=== PATIENT | female | born 1945 | race Caucasian/White ===

== ENCOUNTER → 2016-05-07 11:31 | Outpatient (CLI) | payer MEDICARE, OTHER ==
[2011-11-26 11:59] VITALS: BMI 30.2
[~2016-05-07 11:31] MED LIST: ATIVAN1 MG PO; K-TAB10 MEQ PO; MAXZIDE 75/501 TAB PO; PROZAC40 MG PO
[2016-07-30 15:07] VITALS: BMI 32.7
== END | disposition home or self-care (01) ==
LOC: D.CT 05-06 11:30
DX: R41.3 Other amnesia (principal)

== ENCOUNTER 2016-07-30 14:55 | Outpatient (CLI) | payer MEDICARE, OTHER ==
[2016-07-30] MEDS ORDERED: K-TAB10 MEQ PO (15:02)
[2016-07-30] MEDS ORDERED: ATIVAN1 MG PO (15:02)
[2016-07-30] MEDS ORDERED: MAXZIDE 75/501 TAB PO (15:02)
[2016-07-30] MEDS ORDERED: PROZAC40 MG PO (15:03)
[2016-07-31 06:28] LABS: BASOPHILS 0.3 % (0-2); EOSINOPHILS 6.9 % (0-7); HEMATOCRIT 39.7 % (36.0-48.0); HEMOGLOBIN 15.2 g/dL (12-16); IMMATURE GRANULOCYTES 0.3 % (0-5); LYMPHOCYTES 37.4 % (15-50); MCH 35.3 pg (26.0-34.0); MCHC 38.3 g/dL (31.0-37.0); MCV 92.3 fL (80.0-100.0); MEAN PLATELET VOLUME 10.8 fL (7.4-10.4); MONOCYTES 10.5 % (2-11); NEUTROPHILS 44.6 % (40-80); RDW 14.5 % (11.5-14.5); WBC 7.3 10x3/uL (4.8-10.8)
[2016-07-31 06:39] LABS: ANION GAP 14.6 mmol/L (8-16); CALCIUM 8.8 mg/dL (8.5-10.1); CARBON DIOXIDE 26.2 mmol/L (21.0-32.0); CREATININE - SERUM 1.3 mg/dL (0.6-1.3); PLATELET COUNT 210 10x3/uL (130-400); POTASSIUM - SERUM 3.8 mmol/L (3.5-5.1)
== END 2016-07-31 10:02 | disposition home or self-care (01) ==
LOC: D.OPS 14:55
PROVIDERS: Family Medicine
DX: D64.9 Anemia, unspecified (principal); Z85.72 Personal history of non-Hodgkin lymphomas; J44.9 Chronic obstructive pulmonary disease, unspecified; I12.9 Hypertensive chronic kidney disease with stage 1 through stage 4 chronic kidney disease, or unspecified chronic kidney disease; N18.9 Chronic kidney disease, unspecified

== ENCOUNTER 2018-02-20 10:25 | Inpatient (IN) | payer MEDICARE, OTHER ==
[~2018-02-20] VITALS: Ht 161.3 cm; Wt 77.1 kg
--- NOTE | ~2018-02-20 | MORECARE ---
CASE MANAGEMENT DISCHARGE SUMMARY PATIENT: SHERI CA UNIT: [id number] ADM DATE: 02/20/18 AGE: 72 : 43 SEX: F ROOM/BED: D.2236 AUTHOR: ADELITADOC PHYSICIAN: REFERRING PHYSICIAN: TIFFANY RODRIGUEZ MD DATE OF SERVICE: 03/01/18 Discharge Plan Patient Name: SHERI CA Facility: [facility]:[place] : 1945 Planned Disposition: Home Anticipated Discharge Date: Discharge Date: Expected LOS: Initial Reviewer: [email or web address] Initial Review Date: 02/21/2018 Generated: 03/01/18 4:54 pm Comments DCP- Discharge Planning Updated by [email or web address]: Jeannie Minal on 03/01/18 2:[address] Received order for [facility]. I called and spoke to Jakob, she will speak with the family in 30 minutes. I spoke with patient's daughter and informed her and she agrees to see them when they arrive. CM will continue to follow and assist with discharge planning/needs. DCP- Discharge Planning Updated by [email or web address]: Jeannie Minal on 02/25/18 12:[address] Garnica and she is planning on transferring her to [facility] on Wednesday to Dr. Gutierrez for radiation therapy. I called and left a message with Amanda on inpatient rehab to cancel her inpatient rehab screen. CM will continue to follow and assist with discharge planning/needs. DCP- Discharge Planning Updated by [email or web address]: Jeannie Minal on 02/25/18 11:[address] Spoke with the patient and her daughter (Leda) about discharge planning. They are in agreement to inpatient rehab when medically stable from acute care. A rehab screen and OT eval have been ordered. CM will continue to follow and assist with discharge planning/needs. DCP- Discharge Planning Updated by [id number]: Jeannie Minal on 02/23/18 3:[address] Met with patient and to discuss discharge planning. states "we really won't know anything until Wednesday." I informed him that if he needed anything to let someone know, voiced understanding. CM will continue to follow and assist with discharge planning/needs. DCP- Discharge Planning Updated by [email or web address]: Jeannie Fontaine on 02/21/18 2:[address] Patient Name: SHERI CA Admission Status: Elective Accout number: [id number] Admission Date: 02-20-2018 : 1945 Admission Diagnosis: Attending: TIFFANY RODRIGUEZ Current LOS: 1 Anticipated DC Date: Planned Disposition: Home Primary Insurance: MEDICARE A & B Discharge Planning Comments: CM met with patient to discuss discharge planning, her daughter is in the room. Verbal permission received to discuss discharge planning with family in the room. States she lives with her in a one story home. States she is independent with all ADL's and IADL's. States she does not have any DME or outside community resources assisting in the home. States she does not know of anything she will need at this time. I discussed availability of rehab, home health or DME and she declines need at this time. Daughter states "it's too early to tell." CM will continue to follow and assist with discharge planning/needs. Dairy Tester: Jeannie Fontaine DCPIA - Discharge Planning Initial Assessment Updated by [email or web address]: Jeannie Fontaine on 02/21/18 3:03 pm * Is the patient Alert and Oriented? Yes * How many steps to enter\\exit or inside your home? 1/0 * PCP Dr. Galeano * Pharmacy [facility] on [address] * Preadmission Environment Home with Family * ADLs Independent * Equipment None * List name and contact numbers for known caregivers / representatives who currently or will assist patient after discharge: Danielle DT - [phone] Leda DT - [phone] Tony SON - [phone] Ady - [phone] * Verbal permission to speak to the caregivers and representatives has been obtained from the patient. Yes * Community resources currently utilized None * Additional services required to return to the preadmission environment? No * Can the patient safely return to the preadmission environment? Yes * Has this patient been hospitalized within the prior 30 days at any hospital? No External Providers External Provider: [facility] Next Contact Date: Service Request Date: Service Type: Resolution: Reviewer: Comments: Last DP export: 11/27/18 2:10 Patient Name: SHERI CA Page [id number] at 1554 All edits/amendments must be made on the electronic document DICTATION DATE: 03/01/181553 BUDGET ANALYST: DASHAWN 03/01/181553 RPT#: [id number] DC DATE: STATUS: ADM IN [facility] [address] [place] [address] END OF REPORT
--- NOTE | ~2018-02-20 | MORECARE ---
CASE MANAGEMENT DISCHARGE SUMMARY PATIENT: SHERI CA UNIT: [id number] ADM DATE: 02/20/18 AGE: 72 : 44 SEX: F ROOM/BED: D.[facility] AUTHOR: RENEE UREÑA PHYSICIAN: REFERRING PHYSICIAN: TIFFANY RODRIGUEZ MD DATE OF SERVICE: 02/21/18 Discharge Plan Patient Name: [facility]ERI [facility] [facility] 1945 Planned Disposition: Home Anticipated Discharge Date: Discharge Date: Expected LOS: Initial Reviewer: [email or web address] Initial Review Date: 02/21/2018 Generated: 02/21/18 4:05 pm DCPIA - Discharge Planning Initial Assessment Updated by [email or web address]: Jeannie Fontaine on 02/21/18 3:03 pm * Is the patient Alert and Oriented? Yes * How many steps to enter\exit or inside your home? 1/0 * PCP Dr. Galeano * Pharmacy [facility] on [address] * Preadmission Environment Home with Family * ADLs Independent * Equipment None * List name and contact numbers for known caregivers / representatives who currently or will assist patient after discharge: Danielle - DTR - [phone] [facility] - [phone] Tony SON - [phone] Ady - [phone] * Verbal permission to speak to the caregivers and representatives has been obtained from the patient. Yes * Community resources currently utilized None * Additional services required to return to the preadmission environment? No * Can the patient safely return to the preadmission environment? Yes * Has this patient been hospitalized within the prior 30 days at any hospital? No Patient Name: SHERI CA Page [id number] at 1505 All edits/amendments must be made on the electronic document DICTATION DATE: 02/21/18 1505 CYLINDER BATCHER: DASHAWN 02/21/18 1505 RPT#: [id number] DC DATE: STATUS: ADM IN [facility] [address] [place] [address] END OF REPORT
--- NOTE | ~2018-02-20 | MORECARE ---
CASE MANAGEMENT DISCHARGE SUMMARY PATIENT: SHERI CA UNIT: [id number] ADM DATE: 02/20/18 AGE: 72 : 43 SEX: F ROOM/BED: D.2236 AUTHOR: ADELITA,DOC PHYSICIAN: REFERRING PHYSICIAN: TIFFANY RODRIGUEZ MD DATE OF SERVICE: 03/04/18 Discharge Plan Patient Name: SHERI CA Facility: [facility]:[place] : 1945 Planned Disposition: Home Anticipated Discharge Date: Discharge Date: 03/02/2018 Expected LOS: Initial Reviewer: [email or web address] Initial Review Date: 02/21/2018 Generated: 03/04/18 3:59 pm Comments DCP- Discharge Planning Updated by [email or web address]: Jeannie Briggsbrock on 03/02/18 11:[address] [facility] equipment and they are ready for discharge. Daughter, Leda, at bedside. Daughter states she would like her to be discharged as soon as possible. I have informed her nurse, Shea, and the spa coordinator. She will need ambulance transfer to discharge home with hospice. DCP- Discharge Planning Updated by [email or web address]: Jeannie Briggsbrock on 03/01/18 2:[address] Patient lives [facility]. [facility]. Daughter requests they come in the morning at 8am. I spoke with Savannah at [facility] and clinical faxed. CM will continue to follow and assist with discharge planning/needs. DCP- Discharge Planning Updated by [email or web address]: Jeannie Briggsbrock on 03/01/18 2:[address] Received order for [facility]. I called and spoke to Jakob, she will speak with the family in 30 minutes. I spoke with patient's daughter and informed her and she agrees to see them when they arrive. CM will continue to follow and assist with discharge planning/needs. DCP- Discharge Planning Updated by [email or web address]: Jeannie Minal on 02/25/18 12:[address] Dr. Garnica and she is planning on transferring her to [facility] on Wednesday to Dr. Gutierrez for radiation therapy. I called and left a message with Amanda on inpatient rehab to cancel her inpatient rehab screen. CM will continue to follow and assist with discharge planning/needs. DCP- Discharge Planning Updated by [email or web address]: Jeannie Briggsbrock on 02/25/18 11:[address] Spoke with the patient and her daughter (Leda) about discharge planning. They are in agreement to inpatient rehab when medically stable from acute care. A rehab screen and OT eval have been ordered. CM will continue to follow and assist with discharge planning/needs. DCP- Discharge Planning Updated by [email or web address]: Jeannie Briggsbrock on 02/23/18 3:[address] Met with patient and to discuss discharge planning. states "we really won't know anything until Wednesday." I informed him that if he needed anything to let someone know, voiced understanding. CM will continue to follow and assist with discharge planning/needs. DCP- Discharge Planning Updated by [email or web address]: Jeannie Briggsbrock on 02/21/18 2:[address] Patient Name: SHERI CA Admission Status: Elective Accout number: [id number] Admission Date: 02-20-2018 : 1945 Admission Diagnosis: Attending: TIFFANY RODRIGUEZ Current LOS: 1 Anticipated DC Date: Planned Disposition: Home Primary Insurance: MEDICARE A & B Discharge Planning Comments: CM met with patient to discuss discharge planning, her daughter is in the room. Verbal permission received to discuss discharge planning with family in the room. States she lives with her in a one story home. States she is independent with all ADL's and IADL's. States she does not have any DME or outside community resources assisting in the home. States she does not know of anything she will need at this time. I discussed availability of rehab, home health or DME and she declines need at this time. Daughter states "it's too early to tell." CM will continue to follow and assist with discharge planning/needs. Woods Boss: Jeannie Briggsbrock DCPIA - Discharge Planning Initial Assessment Updated by [email or web address]: Jeannie Briggsbrock on 02/21/18 3:03 pm * Is the patient Alert and Oriented? Yes * How many steps to enter\\exit or inside your home? 1/0 * PCP Dr. Galeano * Pharmacy [facility] [address] * Preadmission Environment Home with Family * ADLs Independent * Equipment None * List name and contact numbers for known caregivers / representatives who currently or will assist patient after discharge: Danielle - DTR - [phone] Leda - DTR - [phone] Tony - SON - [phone] Ady - [phone] * Verbal permission to speak to the caregivers and representatives has been obtained from the patient. Yes * Community resources currently utilized None * Additional services required to return to the preadmission environment? No * Can the patient safely return to the preadmission environment? Yes * Has this patient been hospitalized within the prior 30 days at any hospital? No Coverage Notice Reviewer: [email or web address] Cuauhtemoc Fontaine Notice Issued Date-Time: 03/02/2018 12:03 Notice Type: IM Discharge Notice Notice Delivered To: Family Member Relationship to Patient: Daughter Supervisor [employer] Name: Leda Greene Delivery Method: HAND - Hand Delivered Nerissa Days: Prior Verbal Notification: Recipient Understood Notice: Yes Recipient Signature: Yes Med Rec Note Co-signed by Attending: Coverage Notice Comment: IMM explained, signed, copy given to daughter, original placed on MR Last DP export: 03/02/18 11:09 Patient Name: SHERI CA Page [id number] at 1459 All edits/amendments must be made on the electronic document DICTATION DATE: 03/04/181458 RN HEMODIALYSIS: DASHAWN 03/04/181458 RPT#: [id number] DC DATE:03/02/18 STATUS: DIS IN [facility] [address] [place] [address] END OF REPORT
--- NOTE | ~2018-02-20 | CN ---
PATIENT NAME:SHERI ROMERO MEDICAL RECORD: [id number] : 43 LOCATION:D.MS [address]36 ADMIT DATE: 02/20/18 ACCOUNT: [id number] CONSULTING PHYSICIAN: MANJINDER JOHNSON MD REFERRING PHYSICIAN: TIFFANY RODRIGUEZ MD DATE OF CONSULTATION: 02/28/2018 CONSULT REQUESTING PHYSICIAN: Dr. Garnica. REASON FOR CONSULTATION: Kbtms-au-gdziwoe hypoxic respiratory failure. HISTORY OF PRESENT ILLNESS: Ms. Romero is a 72-year-old female who is a recently diagnosed with metastatic lung cancer. She has also had some infiltrate in bilateral lower lobes. She had increasing requirement of the oxygen. The patient is awaiting to be transferred to the [facility] for radiation therapy when the oxygenation improved. REVIEW OF SYSTEM: Mainly in the history of present illness. PAST MEDICAL HISTORY: 1. History of ex-smoker. 2. History of colon cancer. 3. History of lymphoma. 4. Gastroesophageal reflux disease. 5. History of diverticulitis. 6. Arthritis. PAST SURGICAL HISTORY: 1. She has a hysterectomy. 2. Cholecystectomy. 3. Colon resection. 4. Right axillary lymph node biopsy in 2004. 4. Hemorrhoidectomy. 5. Colon resection secondary to precancerous polyp in 2008. ALLERGIES: No known drug allergies. MEDICATIONS: In whoactually is reviewed. PERSONAL AND SOCIAL HISTORY: The patient is a current everyday smoker. She is a nondrinker. FAMILY HISTORY: Noncontributory. PHYSICAL EXAMINATION: GENERAL: Now, the patient is lying comfortably in bed. She is not in acute distress. VITAL SIGNS: The blood pressure is 135/70, pulse is 87, respiration is 20, temperature 97.9, SpO2 is 90% to 91% on 10 liters nasal cannula. HEENT: Conjunctivae are pink. Sclerae nonicteric. NECK: Supple, no JVD. CHEST: There are bilateral crackles. No wheezing. HEART: Rhythm regular, normal sound, no murmur. ABDOMEN: Soft, bowel sounds present. No hepatosplenomegaly. RECTAL: Deferred. CONSULT REPORT [id number] SHERI ROMERO EXTREMITIES: No cyanosis, no clubbing, no pedal edema. SKIN: Warm, normal turgor. CENTRAL NERVOUS SYSTEM: The patient is awake and alert. There is no obvious cranial nerve abnormality. The gait was not tested. LABORATORY DATA: CBC: The WBC is 8.3, hemoglobin 9.6, hematocrit 28.4, the platelet count is 128. Chemistry: Sodium is 133, potassium is 4.4, BUN is 38, creatinine 1.3. ABG on the ; the pH was 7.38, pCO2 was 44.5, pO2 of 86. This was done on 100% nonrebreather. IMPRESSION: 1. Sosdo-wn-dbjrwxx hypoxic respiratory failure. Metastatic stage IV CA of the breast with metastasis to the brain and to the lung. 2. COPD acute exacerbation. 3. Ex-smoker. 4. Bilateral lower lobe pneumonia. 5. Thrombocytopenia. 6. Mediastinal lymphadenopathy. 7. Brain metastasis. Comparing to the chest radiograph and CT scan of the chest, the hypoxia is out of proportion rule out pulmonary embolism, rule out lymphangitic spread of the cancer of the breast. RECOMMENDATION: 1. I will start methylprednisolone IV, Brovana/budesonide nebulizer. 2. Albuterol/ipratropium nebulizer. 3. Empiric cefepime. I will check the CTA of the chest to rule out PE, rule out a chest CT, to rule out lymphangitic spread. 4. Acapella q.2 hourly when awake. 5. Nebulizer with IPPB. 6. Check the ABG on the present setting. Dr. Garnica, thank you for involving me in the care of Ms. Romero. TRANSINT:[id number] Voice Confirmation ID: [id number] DOCUMENT ID: [id number] MANJINDER JOHNSON MD at 1711 CC: [id number] DICTATION DATE: 02/28/182008 SUPERVISOR SEWER SYSTEM: 02/28/18 2346 DIS IN 03/02/18 [id number] [place] [address]
--- NOTE | ~2018-02-20 | MORECARE ---
CASE MANAGEMENT DISCHARGE SUMMARY PATIENT: SHERI CA UNIT: [id number] ADM DATE: 02/20/18 AGE: 72 : 43 SEX: F ROOM/BED: D.2236 AUTHOR: ADELITA,DOC PHYSICIAN: REFERRING PHYSICIAN: TIFFANY RODRIGUEZ MD DATE OF SERVICE: 02/25/18 Discharge Plan Patient Name: SHERI CA Facility: [facility]:[place] : 1945 Planned Disposition: Home Anticipated Discharge Date: Discharge Date: Expected LOS: Initial Reviewer: [email or web address] Initial Review Date: 02/21/2018 Generated: 02/25/18 2:33 pm Comments DCP- Discharge Planning Updated by [email or web address]: Jeannie Fontaine on 02/25/18 12:[address] Sp[address] with Dr. Garnica and she is planning on transferring her to [facility] on Wednesday to Dr. Gutierrez for radiation therapy. I called and left a message with Amanda on inpatient rehab to cancel her inpatient rehab screen. CM will continue to follow and assist with discharge planning/needs. DCP- Discharge Planning Updated by [email or web address]: Jeannie Minal on 02/25/18 11:[address] Spoke with the patient and her daughter (Leda) about discharge planning. They are in agreement to inpatient rehab when medically stable from acute care. A rehab screen and OT eval have been ordered. CM will continue to follow and assist with discharge planning/needs. DCP- Discharge Planning Updated by [email or web address]: Jeannie Fontaine on 02/23/18 3:[address] Met with patient and to discuss discharge planning. states "we really won't know anything until Wednesday." I informed him that if he needed anything to let someone know, voiced understanding. CM will continue to follow and assist with discharge planning/needs. DCP- Discharge Planning Updated by [email or web address]: Jeannie Fontaine on 02/21/18 2:[address] Patient Name: SHERI CA Admission Status: Elective Accout number: [id number] Admission Date: 02-20-2018 : 1945 Admission Diagnosis: Attending: TIFFANY RODRIGUEZ Current LOS: 1 Anticipated DC Date: Planned Disposition: Home Primary Insurance: MEDICARE A & B Discharge Planning Comments: CM met with patient to discuss discharge planning, her daughter is in the room. Verbal permission received to discuss discharge planning with family in the room. States she lives with her in a one story home. States she is independent with all ADL's and IADL's. States she does not have any DME or outside community resources assisting in the home. States she does not know of anything she will need at this time. I discussed availability of rehab, home health or DME and she declines need at this time. Daughter states "it's too early to tell." CM will continue to follow and assist with discharge planning/needs. Parts Inspector: Jeannie Minal DCPIA - Discharge Planning Initial Assessment Updated by [email or web address]: Jeannie Briggsbrock on 02/21/18 3:03 pm * Is the patient Alert and Oriented? Yes * How many steps to enter\\exit or inside your home? 1/0 * PCP Dr. Galeano * [facility] [address] * Preadmission Environment Home with Family * ADLs Independent * Equipment None * List name and contact numbers for known caregivers / representatives who currently or will assist patient after discharge: Danielle - DTR - [phone] Leda DTR - [phone] Tony SON - [phone] Ady - [phone] * Verbal permission to speak to the caregivers and representatives has been obtained from the patient. Yes * Community resources currently utilized None * Additional services required to return to the preadmission environment? No * Can the patient safely return to the preadmission environment? Yes * Has this patient been hospitalized within the prior 30 days at any hospital? No Last DP export: 02/25/18 11:52 Patient Name: SHERI CA Page 19139 at 1333 All edits/amendments must be made on the electronic document DICTATION DATE: 02/25/181332 DRY HOUSE WHEELER: DASHAWN 02/25/181332 RPT#: [id number] DC DATE: STATUS: ADM IN [facility] [address] [place] [address] END OF REPORT
--- NOTE | ~2018-02-20 | MORECARE ---
CASE MANAGEMENT DISCHARGE SUMMARY PATIENT: SHERI CA UNIT: [id number] ADM DATE: 02/20/18 AGE: 72 : 43 SEX: F ROOM/BED: D.2236 AUTHOR: ADELITA,DOC PHYSICIAN: REFERRING PHYSICIAN: TIFFANY RODRIGUEZ MD DATE OF SERVICE: 03/01/18 Discharge Plan Patient Name: SHERI CA Facility: [facility]:[place] : 1945 Planned Disposition: Home Anticipated Discharge Date: Discharge Date: Expected LOS: Initial Reviewer: [id number] Initial Review Date: 02/21/2018 Generated: 03/01/18 5:05 pm Comments DCP- Discharge Planning Updated by [email or web address]: Jeannie Briggsbrock on 03/01/18 2:[address] Patient lives in [facility] and [place] only services [facility]. [facility]. Daughter requests they come in the morning at 8am. I spoke with Savannah at [facility] and clinical faxed. CM will continue to follow and assist with discharge planning/needs. DCP- Discharge Planning Updated by [email or web address]: Jeannie Minal on 03/01/18 2:[address] Received order for [facility]. I called and spoke to Jakob, she will speak with the family in 30 minutes. I spoke with patient's daughter and informed her and she agrees to see them when they arrive. CM will continue to follow and assist with discharge planning/needs. DCP- Discharge Planning Updated by [email or web address]: Jeannie Minal on 02/25/18 12:[address] Dr. Garnica and she is planning on transferring her to [facility] on Wednesday to Dr. Gutierrez for radiation therapy. I called and left a message with Amanda on inpatient rehab to cancel her inpatient rehab screen. CM will continue to follow and assist with discharge planning/needs. DCP- Discharge Planning Updated by [email or web address]: Jeannie Minal on 02/25/18 11:[address] Spoke with the patient and her daughter (Leda) about discharge planning. They are in agreement to inpatient rehab when medically stable from acute care. A rehab screen and OT eval have been ordered. CM will continue to follow and assist with discharge planning/needs. DCP- Discharge Planning Updated by [id number]: Jeannie Fontaine on 02/23/18 3:[address] Met with patient and to discuss discharge planning. states "we really won't know anything until Wednesday." I informed him that if he needed anything to let someone know, voiced understanding. CM will continue to follow and assist with discharge planning/needs. DCP- Discharge Planning Updated by [email or web address]: Jeannie Fontaine on 02/21/18 2:[address] Patient Name: SHERI CA Admission Status: Elective Accout number: [id number] Admission Date: 02-20-2018 : 1945 Admission Diagnosis: Attending: TIFFANY RODRIGUEZ Current LOS: 1 Anticipated DC Date: Planned Disposition: Home Primary Insurance: MEDICARE A & B Discharge Planning Comments: CM met with patient to discuss discharge planning, her daughter is in the room. Verbal permission received to discuss discharge planning with family in the room. States she lives with her in a one story home. States she is independent with all ADL's and IADL's. States she does not have any DME or outside community resources assisting in the home. States she does not know of anything she will need at this time. I discussed availability of rehab, home health or DME and she declines need at this time. Daughter states "it's too early to tell." CM will continue to follow and assist with discharge planning/needs. Chief Of Field Operations: Jeannie Fontaine DCPIA - Discharge Planning Initial Assessment Updated by [email or web address]: Jeannie Fontaine on 02/21/18 3:03 pm * Is the patient Alert and Oriented? Yes * How many steps to enter\\exit or inside your home? 1/0 * PCP Dr. Galeano * Pharmacy [facility] [address] * Preadmission Environment Home with Family * ADLs Independent * Equipment None * List name and contact numbers for known caregivers / representatives who currently or will assist patient after discharge: Danielle - DTR - [phone] Leda - DTR - [phone] Tony - SON - [phone] Ady - - [phone] * Verbal permission to speak to the caregivers and representatives has been obtained from the patient. Yes * Community resources currently utilized None * Additional services required to return to the preadmission environment? No * Can the patient safely return to the preadmission environment? Yes * Has this patient been hospitalized within the prior 30 days at any hospital? No Last DP export: 03/01/18 2:54 Patient Name: SHERI CA Page 11860 at 1605 All edits/amendments must be made on the electronic document DICTATION DATE: 03/01/181604 FLIGHT ATTENDANT INFLIGHT SERVICES: DASHAWN 03/01/18 160 RPT#: [id number] DC DATE: STATUS: ADM IN [facility] [address] [place] [address] END OF REPORT
--- NOTE | ~2018-02-20 | EC ---
PATIENT:SHERI CA DATE OF SERVICE: 02/20/18 SEX: F MEDICAL RECORD: [id number] DATE OF : 43 LOCATION:[facility] AGE OF PATIENT: 72 ADMISSION DATE: 02/20/18 REFERRING PHYSICIAN: INTERPRETING PHYSICIAN: KEYONNA GONZALEZ MD ECHOCARDIOGRAM REPORT ECHO CHARGES 4 ECHO COMPLETE Date: 02/28/18 CLINICAL DIAGNOSIS: EDEMA ECHOCARDIOGRAPHIC MEASUREMENTS (adult normal given) AC root (d.<3.7cm) 2.9 cm LV Septum d (<1.2 cm> 1.2 cm Valve Excursion 1.9 cm LV Septum (systole) 1.5 cm Left Atria (s.<4.0cm> 3.1 cm LVPW d(<1.2cm) 1.2 cm RV (d.<2.3cm) 3.3 cm LVPW (sytole) 1.6 cm LV diastole(<5.6CM) 3.4 cm MV E-F(>70mm/sec) cm LV systole 1.5 cm LVOT Diameter 1.6 cm MV exc.(>10mm) cm Est.ejection fraction (50-75%) % DOPPLER: LVIT cm/sec A 63.0 cm/sec E 84.0 cm/sec LA cm/sec RVSP 59.1 mmHg LVOT 132 cm/sec AOP1/2T m/s Asc. Ao 149 cm/sec RVOT 54.0 cm/sec RA cm/sec PA 90.0 cm/sec AV Gradient Peak 8.8 mmHg AV Mean 4.3 mmHg AV Area 1.5 cm MV Gradient Peak 5.1 mmHg MV Mean 1.8 mmHg MV Area cm COMMENTS: Tar Pot Worker: Seamus CATALANOE Structures Technician: 1 Dr. Gonzalez TAPE# PACS Pericardial Effusion Y DATE OF SERVICE: 02/28/2018 PROCEDURE: Echocardiogram. FINDINGS: 1. Left ventricular chamber size is within normal limits. Left ventricular systolic function is mildly reduced, overall ejection fraction 40%. 2. Left atrium is within normal limits at 3.1 cm. Right atrium and right ventricle chamber sizes are mildly dilated. 3. Valvular structures have normal structure and motion. ECHOCARDIOGRAM REPORT [id number] SHERI CA 4. Doppler interrogation reveals moderate tricuspid regurgitation, no other valvular insufficiency or stenosis. Pulmonary systolic pressure is elevated, estimated at 60 mmHg. 5. No evidence of pericardial effusion or left ventricular thrombus. TRANSINT:[id number] Voice Confirmation ID: [id number] DOCUMENT ID: [id number] KEYONNA GONZALEZ MD at 1704 CC: [id number] DICTATION DATE: 03/01/18 1135 SAMPLE SHOE INSPECTOR AND REWORKER: 03/01/18 1147 ADM IN [facility] [id number] [place] [address]
--- NOTE | ~2018-02-20 | MORECARE ---
CASE MANAGEMENT DISCHARGE SUMMARY PATIENT: SHERI CA UNIT: [id number] ADM DATE: 02/20/18 AGE: 72 : 43 SEX: F ROOM/BED: D.2236 AUTHOR: RENEE UREÑA PHYSICIAN: REFERRING PHYSICIAN: TIFFANY RODRIGUEZ MD DATE OF SERVICE: 02/25/18 Discharge Plan Patient Name: SHERI CA Facility: [facility]:[place] : 1945 Planned Disposition: Home Anticipated Discharge Date: Discharge Date: Expected LOS: Initial Reviewer: [email or web address] Initial Review Date: 02/21/2018 Generated: 02/25/18 1:52 pm Comments DCP- Discharge Planning Updated by [email or web address]: Jeannie Fontaine on 02/25/18 11:[address] Spoke with the patient and her daughter (Leda) about discharge planning. They are in agreement to inpatient rehab when medically stable from acute care. A rehab screen and OT eval have been ordered. CM will continue to follow and assist with discharge planning/needs. DCP- Discharge Planning Updated by [email or web address]: Jeannie Fontaine on 02/23/18 3:[address] Met with patient and to discuss discharge planning. states "we really won't know anything until Wednesday." I informed him that if he needed anything to let someone know, voiced understanding. CM will continue to follow and assist with discharge planning/needs. DCP- Discharge Planning Updated by [email or web address]: Jeannie Fontaine on 02/21/18 2:[address] Patient Name: SHERI CA Admission Status: Elective Accout number: [id number] Admission Date: 02-20-2018 : 1945 Admission Diagnosis: Attending: TIFFANY RODRIGUEZ Current LOS: 1 Anticipated DC Date: Planned Disposition: Home Primary Insurance: MEDICARE A & B Discharge Planning Comments: CM met with patient to discuss discharge planning, her daughter is in the room. Verbal permission received to discuss discharge planning with family in the room. States she lives with her in a one story home. States she is independent with all ADL's and IADL's. States she does not have any DME or outside community resources assisting in the home. States she does not know of anything she will need at this time. I discussed availability of rehab, home health or DME and she declines need at this time. Daughter states "it's too early to tell." CM will continue to follow and assist with discharge planning/needs. Wrapper Layer: Jeannie Fontaine DCPIA - Discharge Planning Initial Assessment Updated by [email or web address]: Jeannie Fontaine on 02/21/18 3:03 pm * Is the patient Alert and Oriented? Yes * How many steps to enter\\exit or inside your home? 1/0 * PCP Dr. Galeano * Pharmacy [facility] [address] * Preadmission Environment Home with Family * ADLs Independent * Equipment None * List name and contact numbers for known caregivers / representatives who currently or will assist patient after discharge: Danielle - DTR - [phone] Leda DTR - [phone] Tony SON - [phone] Ady - - [phone] * Verbal permission to speak to the caregivers and representatives has been obtained from the patient. Yes * Community resources currently utilized None * Additional services required to return to the preadmission environment? No * Can the patient safely return to the preadmission environment? Yes * Has this patient been hospitalized within the prior 30 days at any hospital? No Last DP export: 02/23/18 3:46 Patient Name: SHERI CA Page 35140 at 1252 All edits/amendments must be made on the electronic document DICTATION DATE: 02/25/18 125 BUSINESS CONTINUITY STRATEGY DIRECTOR: DASHAWN 02/25/18 1252 RPT#: [id number] DC DATE: STATUS: ADM IN [facility] [address] [place] [address] END OF REPORT
--- NOTE | ~2018-02-20 | MORECARE ---
CASE MANAGEMENT DISCHARGE SUMMARY PATIENT: SHERI CA UNIT: [id number] ADM DATE: 02/20/18 AGE: 72 : 43 SEX: F ROOM/BED: D.2236 AUTHOR: ADELITADOC PHYSICIAN: REFERRING PHYSICIAN: TIFFANY RODRIGUEZ MD DATE OF SERVICE: 03/01/18 Discharge Plan Patient Name: SHERI CA Facility: [facility]:[place] : 1945 Planned Disposition: Home Anticipated Discharge Date: Discharge Date: Expected LOS: Initial Reviewer: [email or web address] Initial Review Date: 02/21/2018 Generated: 03/01/18 4:10 pm Comments DCP- Discharge Planning Updated by [email or web address]: Jeannie Minal on 03/01/18 2:[address] Received order for [facility]. I called and spoke to Jakob, she will speak with the family in 30 minutes. I spoke with patient's daughter and informed her and she agrees to see them when they arrive. CM will continue to follow and assist with discharge planning/needs. DCP- Discharge Planning Updated by [email or web address]: Jeannie Minal on 02/25/18 12:[address] Dr. Garnica and she is planning on transferring her to [facility] on Wednesday to Dr. Gutierrez for radiation therapy. I called and left a message with Amanda on inpatient rehab to cancel her inpatient rehab screen. CM will continue to follow and assist with discharge planning/needs. DCP- Discharge Planning Updated by [email or web address]: Jeannie Minal on 02/25/18 11:[address] Spoke with the patient and her daughter (Leda) about discharge planning. They are in agreement to inpatient rehab when medically stable from acute care. A rehab screen and OT eval have been ordered. CM will continue to follow and assist with discharge planning/needs. DCP- Discharge Planning Updated by [email or web address]: Jeannie Minal on 02/23/18 3:[address] Met with patient and to discuss discharge planning. states "we really won't know anything until Wednesday." I informed him that if he needed anything to let someone know, voiced understanding. CM will continue to follow and assist with discharge planning/needs. DCP- Discharge Planning Updated by [email or web address]: Jeannie Fontaine on 02/21/18 2:[address] Patient Name: SHERI CA Admission Status: Elective Accout number: [id number] Admission Date: 02-20-2018 : 1945 Admission Diagnosis: Attending: TIFFANY RODRIGUEZ Current LOS: 1 Anticipated DC Date: Planned Disposition: Home Primary Insurance: MEDICARE A & B Discharge Planning Comments: CM met with patient to discuss discharge planning, her daughter is in the room. Verbal permission received to discuss discharge planning with family in the room. States she lives with her in a one story home. States she is independent with all ADL's and IADL's. States she does not have any DME or outside community resources assisting in the home. States she does not know of anything she will need at this time. I discussed availability of rehab, home health or DME and she declines need at this time. Daughter states "it's too early to tell." CM will continue to follow and assist with discharge planning/needs. Meter Attendant: Jeannie Fontaine DCPIA - Discharge Planning Initial Assessment Updated by [email or web address]: Jeannie Fontaine on 02/21/18 3:03 pm * Is the patient Alert and Oriented? Yes * How many steps to enter\\exit or inside your home? 1/0 * PCP Dr. Galeano * Pharmacy [facility] on [address] * Preadmission Environment Home with Family * ADLs Independent * Equipment None * List name and contact numbers for known caregivers / representatives who currently or will assist patient after discharge: Danielle DT - [phone] Leda DT - [phone] [facility] SON - [phone] Ady - [phone] * Verbal permission to speak to the caregivers and representatives has been obtained from the patient. Yes * Community resources currently utilized None * Additional services required to return to the preadmission environment? No * Can the patient safely return to the preadmission environment? Yes * Has this patient been hospitalized within the prior 30 days at any hospital? No Last DP export: 02/25/18 12:33 Patient Name: SHERI CA Page 04013 at 1510 All edits/amendments must be made on the electronic document DICTATION DATE: 03/01/181508 SYSTEM CONSULTANT: DASHAWN 03/01/181508 RPT#: [id number] DC DATE: STATUS: ADM IN [facility] [address] [place] [address] END OF REPORT
--- NOTE | ~2018-02-20 | MORECARE ---
CASE MANAGEMENT DISCHARGE SUMMARY PATIENT: SHERI CA UNIT: [id number] ADM DATE: 02/20/18 AGE: 72 : 44 SEX: F ROOM/BED: D.2236 AUTHOR: RENEE UREÑA PHYSICIAN: REFERRING PHYSICIAN: TIFFANY RODRIGUEZ MD DATE OF SERVICE: 02/23/18 Discharge Plan Patient Name: SHERI CA Facility: [facility]:[place] : 1945 Planned Disposition: Home Anticipated Discharge Date: Discharge Date: Expected LOS: Initial Reviewer: [email or web address] Initial Review Date: 02/21/2018 Generated: 02/23/18 5:46 pm Comments DCP- Discharge Planning Updated by [email or web address]: Jeannie Fontaine on 02/23/18 3:[address] Met with patient and to discuss discharge planning. states "we really won't know anything until Wednesday." I informed him that if he needed anything to let someone know, voiced understanding. CM will continue to follow and assist with discharge planning/needs. DCP- Discharge Planning Updated by [email or web address]: Jeannie Fontaine on 02/21/18 2:[address] Patient Name: SHERI CA Admission Status: Elective Accout number: [id number] Admission Date: 02-20-2018 : 1945 Admission Diagnosis: Attending: TFIFANY RODRIGUEZ Current LOS: 1 Anticipated DC Date: Planned Disposition: Home Primary Insurance: MEDICARE A & B Discharge Planning Comments: CM met with patient to discuss discharge planning, her daughter is in the room. Verbal permission received to discuss discharge planning with family in the room. States she lives with her in a one story home. States she is independent with all ADL's and IADL's. States she does not have any DME or outside community resources assisting in the home. States she does not know of anything she will need at this time. I discussed availability of rehab, home health or DME and she declines need at this time. Daughter states "it's too early to tell." CM will continue to follow and assist with discharge planning/needs. Telescope Repairer: Jeannie Fontaine DCPIA - Discharge Planning Initial Assessment Updated by [email or web address]: Jeannie Fontaine on 02/21/18 3:03 pm * Is the patient Alert and Oriented? Yes * How many steps to enter\\exit or inside your home? 1/0 * PCP Dr. Galeano * Pharmacy [facility] [address] * Preadmission Environment Home with Family * ADLs Independent * Equipment None * List name and contact numbers for known caregivers / representatives who currently or will assist patient after discharge: Danielle - DT - [phone] [facility] - [phone] Tony SON - [phone] Ady - - [phone] * Verbal permission to speak to the caregivers and representatives has been obtained from the patient. Yes * Community resources currently utilized None * Additional services required to return to the preadmission environment? No * Can the patient safely return to the preadmission environment? Yes * Has this patient been hospitalized within the prior 30 days at any hospital? No Last DP export: 02/21/18 2:12 Patient Name: SHERI CA Page 97419 at 1646 All edits/amendments must be made on the electronic document DICTATION DATE: 02/23/181644 EVENT OPERATIONS MANAGER: DASHAWN 02/23/181644 RPT#: [id number] DC DATE: STATUS: ADM IN [facility] [address] [place] [address] END OF REPORT
--- NOTE | ~2018-02-20 | MORECARE ---
CASE MANAGEMENT DISCHARGE SUMMARY PATIENT: SHERI CA UNIT: [id number] ADM DATE: 02/20/18 AGE: 72 : 43 SEX: F ROOM/BED: D.2236 AUTHOR: ADELITA,DOC PHYSICIAN: REFERRING PHYSICIAN: TIFFANY RODRIGUEZ MD DATE OF SERVICE: 03/02/18 Discharge Plan Patient Name: SHERI CA Facility: [facility]:[place] : 1945 Planned Disposition: Home Anticipated Discharge Date: Discharge Date: Expected LOS: Initial Reviewer: [email or web address] Initial Review Date: 02/21/2018 Generated: 03/02/18 1:09 pm Comments DCP- Discharge Planning Updated by [email or web address]: Jeannie Fontaine on 03/02/18 11:[address] [facility] all equipment and they are ready for discharge. Daughter, Leda, at bedside. Daughter states she would like her to be discharged as soon as possible. I have informed her nurse, Shea, and the corporate coordinator. She will need ambulance transfer to discharge home with hospice. DCP- Discharge Planning Updated by [email or web address]: Jeannie Fontaine on 03/01/18 2:[address] Patient lives in [facility] and [facility]. [facility]. Daughter requests they come in the morning at 8am. I spoke with Savannah at [facility] and clinical faxed. CM will continue to follow and assist with discharge planning/needs. DCP- Discharge Planning Updated by [email or web address]: Jeannie Fontaine on 03/01/18 2:[address] Received order for [facility]. I called and spoke to Jakob, she will speak with the family in 30 minutes. I spoke with patient's daughter and informed her and she agrees to see them when they arrive. CM will continue to follow and assist with discharge planning/needs. DCP- Discharge Planning Updated by [email or web address]: Jeannie Briggsbrock on 02/25/18 12:[address] Sp[address] Dr. Garnica and she is planning on transferring her to [facility] on Wednesday to Dr. Gutierrez for radiation therapy. I called and left a message with Amanda on inpatient rehab to cancel her inpatient rehab screen. CM will continue to follow and assist with discharge planning/needs. DCP- Discharge Planning Updated by [email or web address]: Jeannie Fontaine on 02/25/18 11:[address] Spoke with the patient and her daughter (Leda) about discharge planning. They are in agreement to inpatient rehab when medically stable from acute care. A rehab screen and OT eval have been ordered. CM will continue to follow and assist with discharge planning/needs. DCP- Discharge Planning Updated by [email or web address]: Jeannie Briggsbrcok on 02/23/18 3:[address] Met with patient and to discuss discharge planning. states "we really won't know anything until Wednesday." I informed him that if he needed anything to let someone know, voiced understanding. CM will continue to follow and assist with discharge planning/needs. DCP- Discharge Planning Updated by [email or web address]: Jeannie Briggsbrock on 02/21/18 2:[address] Patient Name: SHERI CA Admission Status: Elective Accout number: [id number] Admission Date: 02-20-2018 : 1945 Admission Diagnosis: Attending: TIFFANY RODRIGUEZ Current LOS: 1 Anticipated DC Date: Planned Disposition: Home Primary Insurance: MEDICARE A & B Discharge Planning Comments: CM met with patient to discuss discharge planning, her daughter is in the room. Verbal permission received to discuss discharge planning with family in the room. States she lives with her in a one story home. States she is independent with all ADL's and IADL's. States she does not have any DME or outside community resources assisting in the home. States she does not know of anything she will need at this time. I discussed availability of rehab, home health or DME and she declines need at this time. Daughter states "it's too early to tell." CM will continue to follow and assist with discharge planning/needs. Book Solicitor: Jeannie Fontaine DCPIA - Discharge Planning Initial Assessment Updated by [email or web address]: Jeannie Briggsbrock on 02/21/18 3:03 pm * Is the patient Alert and Oriented? Yes * How many steps to enter\\exit or inside your home? 1/0 * PCP Dr. Galeano * Pharmacy [facility] [address] * Preadmission Environment Home with Family * ADLs Independent * Equipment None * List name and contact numbers for known caregivers / representatives who currently or will assist patient after discharge: Danielle - DTR - [phone] Leda - DTR - [phone] Tony - SON - [phone] Ady - - [phone] * Verbal permission to speak to the caregivers and representatives has been obtained from the patient. Yes * Community resources currently utilized None * Additional services required to return to the preadmission environment? No * Can the patient safely return to the preadmission environment? Yes * Has this patient been hospitalized within the prior 30 days at any hospital? No Coverage Notice Reviewer: [id number] Cuauhtemoc Fontaine Notice Issued Date-Time: 03/02/2018 12:03 Notice Type: IM Discharge Notice Notice Delivered To: Family Member Relationship to Patient: Daughter Light Rail Transit Operator Name: Leda Greene Delivery Method: HAND - Hand Delivered Nerissa Days: Prior Verbal Notification: Recipient Understood Notice: Yes Recipient Signature: Yes Med Rec Note Co-signed by Attending: Coverage Notice Comment: IMM explained, signed, copy given to daughter, original placed on MR Last DP export: 03/01/18 3:05 Patient Name: SHERI CA Page 31694 at 1209 All edits/amendments must be made on the electronic document DICTATION DATE: 03/02/181208 TIRE FIXER: DASHAWN 03/02/181208 RPT#: [id number] DC DATE: STATUS: ADM IN [facility] [address] [place] [address] END OF REPORT
--- NOTE | ~2018-02-20 | MORECARE ---
CASE MANAGEMENT DISCHARGE SUMMARY PATIENT: SHERI CA UNIT: [id number] ADM DATE: 02/20/18 AGE: 72 : 43 SEX: F ROOM/BED[facility] AUTHOR: ADELITA,DOC PHYSICIAN: REFERRING PHYSICIAN: TIFFANY RODRIGUEZ MD DATE OF SERVICE: 02/21/18 Discharge Plan Patient Name: SHERI CA Facility: [facility]:[place] : 1945 Planned Disposition: Home Anticipated Discharge Date: Discharge Date: Expected LOS: Initial Reviewer: [email or web address] Initial Review Date: 02/21/2018 Generated: 02/21/18 4:12 pm Comments DCP- Discharge Planning Updated by [email or web address]: Jeannie Fontaine on 02/21/18 2:[address] Patient Name: SHERI CA Admission Status: Elective Accout number: [id number] Admission Date: 02-20-2018 : 1945 Admission Diagnosis: Attending: TIFFANY RODRIGUEZ Current LOS: 1 Anticipated DC Date: Planned Disposition: Home Primary Insurance: MEDICARE A & B Discharge Planning Comments: CM met with patient to discuss discharge planning, her daughter is in the room. Verbal permission received to discuss discharge planning with family in the room. States she lives with her in a one story home. States she is independent with all ADL's and IADL's. States she does not have any DME or outside community resources assisting in the home. States she does not know of anything she will need at this time. I discussed availability of rehab, home health or DME and she declines need at this time. Daughter states "it's too early to tell." CM will continue to follow and assist with discharge planning/needs. Chicken Buyer: Jeannie Fontaine DCPIA - Discharge Planning Initial Assessment Updated by [email or web address]: Jeannie Fontaine on 02/21/18 3:03 pm * Is the patient Alert and Oriented? Yes * How many steps to enter\\exit or inside your home? 1/0 * PCP Dr. Galeano * Pharmacy [facility] [address] * Preadmission Environment Home with Family * ADLs Independent * Equipment None * List name and contact numbers for known caregivers / representatives who currently or will assist patient after discharge: Danielle - DTR - [phone] Leda - DTR - [phone] Tony - SON - [phone] Ady - - [phone] * Verbal permission to speak to the caregivers and representatives has been obtained from the patient. Yes * Community resources currently utilized None * Additional services required to return to the preadmission environment? No * Can the patient safely return to the preadmission environment? Yes * Has this patient been hospitalized within the prior 30 days at any hospital? No Last DP export: 02/21/18 2:05 Patient Name: SHERI CA Page [id number] at 1512 All edits/amendments must be made on the electronic document DICTATION DATE: 02/21/181511 GRAVITY PROSPECTING SUPERVISOR: DASHAWN 02/21/181511 RPT#: [id number] DC DATE: STATUS: ADM IN [facility] [address] [place] [address] END OF REPORT
[2018-02-20] MEDS ORDERED: FLAGYL500 MG PO (10:31)
[2018-02-20] MEDS ORDERED: NORCO 7.5/325 T1 TA1 PO (10:31)
[2018-02-20] MEDS ORDERED: CIPRO500 MG PO (10:31)
[2018-02-20 10:59] LABS: BASOPHILS 0.8 % (0-2); HEMATOCRIT 35.2 % (36.0-48.0); HEMOGLOBIN 12.2 g/dL (12-16); IMMATURE GRANULOCYTES 8.9 % (0-5); LYMPHOCYTES 23.8 % (15-50); MCH 29.5 pg (26.0-34.0); MCHC 34.7 g/dL (31.0-37.0); MCV 85.2 fL (80.0-100.0); MEAN PLATELET VOLUME 10.1 fL (7.4-10.4); MONOCYTES 6.1 % (2-11); NEUTROPHILS 58.4 % (40-80); RBC 4.13 10x6/uL (4.00-5.40); RDW 13.8 % (11.5-14.5); WBC 14.3 10x3/uL (4.8-10.8)
[2018-02-20 11:00] LABS: PLATELET COUNT 76 10x3/uL (130-400)
[2018-02-20 11:07] LABS: APPEARANCE CLEAR (CLEAR); BILIRUBIN NEGATIVE (NEGATIVE); COLOR STRAW (YELLOW); GLUCOSE NEGATIVE (NEGATIVE); KETONE NEGATIVE (NEGATIVE); NITRITE NEGATIVE (NEGATIVE); PROTEIN NEGATIVE (NEGATIVE); SPECIFIC GRAVITY 1.015 (1.005-1.020); UROBILINOGEN NORMAL (NORMAL)
[2018-02-20 11:16] LABS: PLATELET ESTIMATE DECREASED
[2018-02-20 11:25] LABS: ALBUMIN 3.2 g/dL (3.4-5.0); ANION GAP 14.4 mmol/L (8-16); BILIRUBIN - TOTAL 0.44 mg/dL (0.2-1.3); CALCIUM 9.2 mg/dL (8.5-10.1); CREATININE - SERUM 1.4 mg/dL (0.6-1.3); POTASSIUM - SERUM 3.4 mmol/L (3.5-5.1)
[2018-02-20] MEDS ORDERED: ATIVAN2 MG PO (15:43)
[2018-02-20 16:17] VITALS: BP 136/64; BMI 29.7
[2018-02-20 20:00] VITALS: BP 149/75
[2018-02-21] VITALS: BP 157/62
[2018-02-21 04:00] VITALS: BP 138/90
[2018-02-21 08:12] VITALS: BP 148/68
[2018-02-21 11:21] LABS: BASOPHILS 0.4 % (0-2); EOSINOPHILS 1.6 % (0-7); HEMATOCRIT 30.7 % (36.0-48.0); HEMOGLOBIN 10.3 g/dL (12-16); IMMATURE GRANULOCYTES 8.6 % (0-5); LYMPHOCYTES 24.3 % (15-50); MCH 28.8 pg (26.0-34.0); MCHC 33.6 g/dL (31.0-37.0); MCV 85.8 fL (80.0-100.0); MEAN PLATELET VOLUME 11.6 fL (7.4-10.4); MONOCYTES 6.1 % (2-11); PLATELET COUNT 69 10x3/uL (130-400); RBC 3.58 10x6/uL (4.00-5.40); RDW 13.8 % (11.5-14.5); WBC 11.5 10x3/uL (4.8-10.8)
[2018-02-21 11:29] LABS: ANION GAP 12.4 mmol/L (8-16); CALCIUM 8.5 mg/dL (8.5-10.1); CARBON DIOXIDE 26.4 mmol/L (21.0-32.0); POTASSIUM - SERUM 3.8 mmol/L (3.5-5.1)
[2018-02-21 11:30] LABS: INR 1.26 (0.85-1.17); PROTIME 15.5 SECONDS (11.6-15.0)
[2018-02-21 14:29] VITALS: BMI 29.6
[2018-02-21 16:10] VITALS: BP 132/60
[2018-02-21 20:00] VITALS: BP 136/60
[2018-02-22 05:29] LABS: BASOPHILS 0.4 % (0-2); HEMATOCRIT 29.1 % (36.0-48.0); HEMOGLOBIN 9.7 g/dL (12-16); IMMATURE GRANULOCYTES 6.2 % (0-5); LYMPHOCYTES 33.4 % (15-50); MCH 28.8 pg (26.0-34.0); MCHC 33.3 g/dL (31.0-37.0); MCV 86.4 fL (80.0-100.0); MEAN PLATELET VOLUME 10.9 fL (7.4-10.4); PLATELET COUNT 62 10x3/uL (130-400); RBC 3.37 10x6/uL (4.00-5.40); RDW 14.1 % (11.5-14.5); WBC 11.3 10x3/uL (4.8-10.8)
[2018-02-22 05:47] LABS: ANION GAP 13.5 mmol/L (8-16); CALCIUM 8.9 mg/dL (8.5-10.1); CARBON DIOXIDE 26.3 mmol/L (21.0-32.0); CREATININE - SERUM 1.2 mg/dL (0.6-1.3); POTASSIUM - SERUM 3.8 mmol/L (3.5-5.1)
[2018-02-22 07:21] VITALS: BP 130/64
[2018-02-22 08:32] VITALS: BP 153/72
[2018-02-22 10:15] VITALS: Ht 161.3 cm; Wt 77.1 kg
[2018-02-22 12:10] VITALS: BP 159/68
[2018-02-22 17:13] VITALS: BP 144/66
[2018-02-22 22:17] VITALS: BP 131/67
[2018-02-23 01:08] VITALS: BP 126/73
[2018-02-23 05:08] VITALS: BP 124/58
[2018-02-23 06:30] LABS: BASOPHILS 0.4 % (0-2); EOSINOPHILS 0.9 % (0-7); HEMATOCRIT 27.8 % (36.0-48.0); HEMOGLOBIN 9.2 g/dL (12-16); IMMATURE GRANULOCYTES 7.6 % (0-5); LYMPHOCYTES 28.2 % (15-50); MCH 29.3 pg (26.0-34.0); MCHC 33.1 g/dL (31.0-37.0); MEAN PLATELET VOLUME 11.6 fL (7.4-10.4); MONOCYTES 6.5 % (2-11); NEUTROPHILS 56.4 % (40-80); PLATELET COUNT 55 10x3/uL (130-400); RBC 3.14 10x6/uL (4.00-5.40); RDW 14.7 % (11.5-14.5)
[2018-02-23 06:36] LABS: MCV 88.5 fL (80.0-100.0); WBC 7.4 10x3/uL (4.8-10.8)
[2018-02-23 06:41] LABS: CALCIUM 8.8 mg/dL (8.5-10.1); CARBON DIOXIDE 25.9 mmol/L (21.0-32.0); POTASSIUM - SERUM 3.9 mmol/L (3.5-5.1)
[2018-02-23 08:36] VITALS: BP 137/53
[2018-02-23 13:34] VITALS: BP 140/67
[2018-02-23 16:32] VITALS: BP 148/65
[2018-02-23 20:00] VITALS: BP 108/61
[2018-02-24] VITALS: BP 138/72
[2018-02-24 04:00] VITALS: BP 132/52
[2018-02-24 06:55] LABS: BASOPHILS 0.3 % (0-2); EOSINOPHILS 0.5 % (0-7); HEMATOCRIT 26.1 % (36.0-48.0); HEMOGLOBIN 8.6 g/dL (12-16); IMMATURE GRANULOCYTES 6.1 % (0-5); LYMPHOCYTES 25.3 % (15-50); MCH 28.8 pg (26.0-34.0); MCV 87.3 fL (80.0-100.0); MEAN PLATELET VOLUME 12.3 fL (7.4-10.4); NEUTROPHILS 61.8 % (40-80); RBC 2.99 10x6/uL (4.00-5.40); RDW 14.4 % (11.5-14.5); WBC 7.5 10x3/uL (4.8-10.8)
[2018-02-24 07:03] LABS: PLATELET COUNT 46 10x3/uL (130-400)
[2018-02-24 07:10] LABS: ANION GAP 11.4 mmol/L (8-16); CALCIUM 8.9 mg/dL (8.5-10.1); CARBON DIOXIDE 28.7 mmol/L (21.0-32.0); POTASSIUM - SERUM 4.1 mmol/L (3.5-5.1)
[2018-02-24 08:41] VITALS: BP 144/73
[2018-02-24 20:00] VITALS: BP 150/72
[2018-02-25] VITALS: BP 138/61
[2018-02-25 04:00] VITALS: BP 104/47
[2018-02-25 06:38] LABS: BASOPHILS 0.2 % (0-2); EOSINOPHILS 0.5 % (0-7); HEMATOCRIT 24.2 % (36.0-48.0); HEMOGLOBIN 8.1 g/dL (12-16); LYMPHOCYTES 22.3 % (15-50); MCH 28.7 pg (26.0-34.0); MCHC 33.5 g/dL (31.0-37.0); MCV 85.8 fL (80.0-100.0); MEAN PLATELET VOLUME 10.9 fL (7.4-10.4); MONOCYTES 4.4 % (2-11); NEUTROPHILS 66.6 % (40-80); RBC 2.82 10x6/uL (4.00-5.40); RDW 14.3 % (11.5-14.5); WBC 6.6 10x3/uL (4.8-10.8)
[2018-02-25 06:49] LABS: PLATELET COUNT 28 10x3/uL (130-400)
[2018-02-25 06:51] LABS: ANION GAP 13.8 mmol/L (8-16); CALCIUM 8.7 mg/dL (8.5-10.1); CARBON DIOXIDE 24.6 mmol/L (21.0-32.0); CREATININE - SERUM 1.1 mg/dL (0.6-1.3); POTASSIUM - SERUM 4.4 mmol/L (3.5-5.1)
[2018-02-25 08:57] VITALS: BP 140/69
[2018-02-25 12:20] VITALS: BP 128/62
[2018-02-25 15:16] LABS: APTT 73.8 SECONDS (22.8-39.4); INR 1.14 (0.85-1.17); PROTIME 14.1 SECONDS (11.6-15.0)
[2018-02-25 16:19] VITALS: BP 150/74
[2018-02-25 20:02] VITALS: BP 129/56
[2018-02-26 00:24] VITALS: BP 138/66
[2018-02-26 07:46] LABS: BASOPHILS 0.5 % (0-2); EOSINOPHILS 0.8 % (0-7); HEMATOCRIT 24.7 % (36.0-48.0); HEMOGLOBIN 8.4 g/dL (12-16); IMMATURE GRANULOCYTES 8.9 % (0-5); LYMPHOCYTES 26.6 % (15-50); MCH 29.3 pg (26.0-34.0); MCV 86.1 fL (80.0-100.0); NEUTROPHILS 57.2 % (40-80); RBC 2.87 10x6/uL (4.00-5.40); RDW 14.7 % (11.5-14.5); WBC 7.9 10x3/uL (4.8-10.8)
[2018-02-26 07:52] LABS: PLATELET COUNT 102 10x3/uL (130-400)
[2018-02-26 08:03] LABS: ANION GAP 16.7 mmol/L (8-16); CALCIUM 8.6 mg/dL (8.5-10.1); CARBON DIOXIDE 24.6 mmol/L (21.0-32.0); CREATININE - SERUM 1.1 mg/dL (0.6-1.3); POTASSIUM - SERUM 4.3 mmol/L (3.5-5.1)
[2018-02-26 09:10] VITALS: BP 142/69
[2018-02-26 12:13] VITALS: BP 116/72
[2018-02-26 14:44] VITALS: BP 141/70
[2018-02-26 20:47] VITALS: BP 152/79
[2018-02-27] VITALS (7 sets, daily range): BP systolic 119–137; BP diastolic 63–74
[2018-02-27 07:25] LABS: ANION GAP 15.6 mmol/L (8-16); CALCIUM 8.1 mg/dL (8.5-10.1); CARBON DIOXIDE 26.8 mmol/L (21.0-32.0); CREATININE - SERUM 1.1 mg/dL (0.6-1.3)
[2018-02-27 07:26] LABS: POTASSIUM - SERUM 5.4 mmol/L (3.5-5.1)
[2018-02-27 08:10] LABS: BASOPHILS 0.3 % (0-2); EOSINOPHILS 0.7 % (0-7); HEMATOCRIT 23.4 % (36.0-48.0); HEMOGLOBIN 7.8 g/dL (12-16); IMMATURE GRANULOCYTES 7.8 % (0-5); LYMPHOCYTES 28.7 % (15-50); MCH 28.5 pg (26.0-34.0); MCHC 33.3 g/dL (31.0-37.0); MCV 85.4 fL (80.0-100.0); MONOCYTES 7.1 % (2-11); NEUTROPHILS 55.4 % (40-80); RBC 2.74 10x6/uL (4.00-5.40); RDW 14.6 % (11.5-14.5); WBC 8.8 10x3/uL (4.8-10.8)
[2018-02-27 08:15] LABS: PLATELET COUNT 41 10x3/uL (130-400)
[2018-02-28] VITALS (9 sets, daily range): BP systolic 96–141; BP diastolic 53–78
[2018-02-28 11:17] LABS: BASOPHILS 0.5 % (0-2); EOSINOPHILS 0.5 % (0-7); HEMATOCRIT 28.5 % (36.0-48.0); HEMOGLOBIN 9.6 g/dL (12-16); IMMATURE GRANULOCYTES 7.8 % (0-5); LYMPHOCYTES 38.5 % (15-50); MCH 27.5 pg (26.0-34.0); MCHC 33.7 g/dL (31.0-37.0); MCV 81.7 fL (80.0-100.0); MEAN PLATELET VOLUME 11.6 fL (7.4-10.4); MONOCYTES 6.4 % (2-11); NEUTROPHILS 46.3 % (40-80); RBC 3.49 10x6/uL (4.00-5.40); RDW 17.2 % (11.5-14.5); WBC 8.3 10x3/uL (4.8-10.8)
[2018-02-28 11:18] LABS: ANION GAP 12.9 mmol/L (8-16); CALCIUM 7.7 mg/dL (8.5-10.1); CARBON DIOXIDE 27.5 mmol/L (21.0-32.0); CREATININE - SERUM 1.3 mg/dL (0.6-1.3); PLATELET COUNT 128 10x3/uL (130-400); POTASSIUM - SERUM 4.4 mmol/L (3.5-5.1)
[2018-03-01 00:18] VITALS: BP 139/69
[2018-03-01 04:29] VITALS: BP 141/76
[2018-03-01 06:29] LABS: ANION GAP 17.3 mmol/L (8-16); CALCIUM 7.6 mg/dL (8.5-10.1); CARBON DIOXIDE 25.5 mmol/L (21.0-32.0); CREATININE - SERUM 1.4 mg/dL (0.6-1.3); POTASSIUM - SERUM 4.8 mmol/L (3.5-5.1)
[2018-03-01 07:12] LABS: BASOPHILS 0.5 % (0-2); EOSINOPHILS 0.6 % (0-7); HEMATOCRIT 26.5 % (36.0-48.0); HEMOGLOBIN 9.4 g/dL (12-16); IMMATURE GRANULOCYTES 7.7 % (0-5); LYMPHOCYTES 41.1 % (15-50); MCH 29.6 pg (26.0-34.0); MCHC 35.5 g/dL (31.0-37.0); MCV 83.3 fL (80.0-100.0); MONOCYTES 5.2 % (2-11); NEUTROPHILS 44.9 % (40-80); RBC 3.18 10x6/uL (4.00-5.40); RDW 17.3 % (11.5-14.5)
[2018-03-01 07:17] LABS: PLATELET COUNT 66 10x3/uL (130-400)
[2018-03-01 08:10] VITALS: BP 125/63
[2018-03-01 12:45] VITALS: BP 104/77
[2018-03-01 17:52] VITALS: BP 136/68
[2018-03-01 21:23] VITALS: BP 150/87
[2018-03-02 06:33] LABS: BASOPHILS 0.5 % (0-2); EOSINOPHILS 0.4 % (0-7); HEMOGLOBIN 10.1 g/dL (12-16); IMMATURE GRANULOCYTES 7.2 % (0-5); LYMPHOCYTES 42.7 % (15-50); MCH 27.9 pg (26.0-34.0); MCHC 33.7 g/dL (31.0-37.0); MCV 82.9 fL (80.0-100.0); MONOCYTES 6.2 % (2-11); RBC 3.62 10x6/uL (4.00-5.40); RDW 17.5 % (11.5-14.5)
[2018-03-02 06:49] LABS: CALCIUM 7.4 mg/dL (8.5-10.1); CARBON DIOXIDE 23.1 mmol/L (21.0-32.0); CREATININE - SERUM 1.4 mg/dL (0.6-1.3)
[2018-03-02 06:52] LABS: POTASSIUM - SERUM 5.1 mmol/L (3.5-5.1)
[2018-03-02 07:12] LABS: WBC 11.8 10x3/uL (4.8-10.8)
[2018-03-02 07:13] LABS: PLATELET COUNT 30 10x3/uL (130-400)
[2018-03-02 08:35] VITALS: BP 143/76
[2018-03-02] MEDS ORDERED: Duragesic TRANSDERM (11:58)
[2018-03-02] MEDS ORDERED: TESSALON PERLE100 MG PO (11:58)
[2018-03-02] MEDS ORDERED: MUCINEX600 MG PO (11:58)
[2018-03-02] MEDS ORDERED: MEGACE40 MG PO (11:58)
[2018-03-02] MEDS ORDERED: PULMICORT0.5 MG/21 UPD (11:58)
[2018-03-02] MEDS ORDERED: PREDNISONE10 MG PO (11:59)
[2018-03-02] MEDS ORDERED: PHENERGAN25 MG/ML IM (12:00)
[2018-03-02] MEDS ORDERED: PHENERGAN25 MG/ML PO (13:02)
== END 2018-03-02 14:30 | disposition home health service (06) | DRG 542 ==
LOC: D.ER 10:25 → D.EDHOLD 13:07 → D.MS 13:07
PROVIDERS: Emergency Medicine; Internal Medicine Hematology & Oncology; Internal Medicine Nephrology
PROC: 0HBU3ZX Excision of Left Breast, Percutaneous Approach, Diagnostic (ICD-10-PCS; principal; 2018-02-21)
DX: C79.51 Secondary malignant neoplasm of bone (principal); J18.9 Pneumonia, unspecified organism; J96.01 Acute respiratory failure with hypoxia; C79.31 Secondary malignant neoplasm of brain; C79.71 Secondary malignant neoplasm of right adrenal gland; K57.92 Diverticulitis of intestine, part unspecified, without perforation or abscess without bleeding; F17.213 Nicotine dependence, cigarettes, with withdrawal; J98.11 Atelectasis; C50.912 Malignant neoplasm of unspecified site of left female breast; E86.0 Dehydration; E87.6 Hypokalemia; D69.6 Thrombocytopenia, unspecified; R63.0 Anorexia